=== PATIENT | female | born 1985 | race Caucasian/White ===

== ENCOUNTER → 2023-11-10 06:32 | Outpatient (REF) | payer BC, SELFPAY ==
[2023-11-10 08:00] LABS: % Basophils 0.5 % (0-2); % Immature Granulocytes 0.3 % (0-0.5); % Monocytes 7.7 % (1.7-9.3); % Neutrophils 47.5 % (42.2-75.2); Absolute Eosinophils 0.2 10^3/uL (0-0.7); Absolute Lymphocytes 1.5 10^3/uL (1.2-3.4); Absolute Monocytes 0.3 10^3/uL (0.1-0.6); Absolute Neutrophils 1.8 10^3/uL (1.4-6.5); Hematocrit 34.3 % (37.0-47.0); Hemoglobin 11.7 g/dL (12.0-16.0); Mean Corp Hgb Conc. 34.1 g/dL (33.0-37.0); Mean Corpuscular Hgb 30.3 pg (27.0-31.0); Mean Corpuscular Volume 88.9 fL (81.0-99.0); Mean Platelet Volume 10.3 fL (7.4-10.4); Nucleated Red Blood Cells % 0 %; Platelet Count 181 10^3/uL (130-400); Red Blood Cell Count 3.86 10^6/uL (4.20-5.40); Red Cell Dist. Width 12.6 % (11.5-14.5); White Blood Cell Count 3.8 10^3/uL (4.8-10.8)
[2023-11-10 08:31] LABS: Iron 122 ug/dl (37-170)
[2023-11-10 08:40] LABS: Percent Saturation 44 % (20-50); Total Iron Binding Capacity 277 ug/dl (265-497)
== END ==
LOC: REG 06:32
PROVIDERS: ATTENDING PHYSICIAN Family Medicine
DX: Z86.2 Personal history of diseases of the blood and blood-forming organs and certain disorders involving the immune mechanism (principal)
CPT/HCPCS: 36415; 82728; 83540; 83550; 85025

== ENCOUNTER → 2024-01-23 06:52 | Outpatient (REF) | payer BC, SELFPAY ==
[2024-01-23 07:53] LABS: ALT (SGPT) 28 U/L (0-35); AST (SGOT) 24 U/L (14-36); Albumin 4.7 g/dl (3.5-5.0); Alkaline Phosphatase 47 U/L (38-126); Blood Urea Nitrogen 12 mg/dl (7-17); Calcium 9.7 mg/dl (8.4-10.2); Carbon Dioxide 25 mmol/L (22-30); Chloride 103 mmol/L (98-107); Glucose 89 mg/dl (70-99); HDL Cholesterol 97 mg/dl; LDL Cholesterol, Calculated 73 mg/dl; Potassium 4.2 mmol/L (3.5-5.1); Sodium 140 mmol/L (135-145); Total Bilirubin 0.7 mg/dl (0.2-1.3); Total Cholesterol 180 mg/dl (50-199); Total Protein 7.2 g/dl (6.3-8.2); Triglyceride 50 mg/dl (10-149); Very Low Density Lipoprotein 10 mg/dl (0-30); eGFR > 60.00
[2024-01-23 08:15] LABS: TSH 1.42 uIU/ml (0.47-4.68)
== END ==
LOC: REG 06:52
PROVIDERS: ATTENDING PHYSICIAN Family Medicine
DX: Z00.00 Encounter for general adult medical examination without abnormal findings (principal)
CPT/HCPCS: 36415; 80053; 80061; 84443

== ENCOUNTER 2024-02-03 14:32 | Emergency (ER) | payer BC, SELFPAY ==
[2024-02-03 14:49] VITALS: BP 123/82
--- NOTE | 2024-02-03 17:18 | ED.GENMED ---
History of Present Illness
General
Chief Complaint: Eye Problems
Source: patient
Time Seen by Provider: 02/03/24 17:07
History of Present Illness
History of Present Illness:
Pleasant 38-year-old female that presents with visual disturbances in her right eye. Since 9 AM this morning patient noticed a 'half-pabon shaped area of cloudiness' in her right eye. She does report some pain and redness. Patient has a history of
blepharitis and had similar symptoms approximately 1 year ago. She was treated at her furnace repairer at that time. She called her furnace repairer today but they could not fit her in. Patient works in the hospital. She had to call out from work
today. Denies fever, chills, nausea or vomiting. She reports no vertigo or dizziness. Denies any symptoms in the left eye.
Review of Systems
Review of Systems
Allergies reviewed?: Yes
Phy Exam
General Physical Exam
General Presentation: well appearing and mild distress
General age: appears stated age
General Skin: warm and dry
General Habitus: normal
General Mental: alert
Cardiovascular Exam
Cardiovascular Exam: regular rate/rhythm
Pulmonary Exam
Pulmonary Exam: no respiratory distress and no cough
Gastrointestinal Exam
Gastrointestinal Exam: non tender
Neurological Exam
Neurological Exam: alert and oriented x3
Musculoskeletal Exam
Musculoskeletal Exam: full ROM
Skin Exam
Skin Exam: normal color and warm/dry
Psychiatric Exam
Psychiatric Exam: normal mood/affect
Course
Orders/Labs/Results
Orders:
Orders
02/03/24 16:45
Visual Acuity- Treatment ONCE
02/03/24 17:25
Visual Acuity- Treatment ONCE
02/03/24 17:29
Fluorescein Sodium [Ful-Dahlia] 1 mg .ROUTE .STK-MED ONE
Tetracaine HCl [Tetracaine 0.5% Ophthalmic Solution] 1 drop .ROUTE .STK-MED ONE
Vital Signs
Initial and Last Documented VS:
Initial Vital Signs
Temp Pulse Resp BP Pulse Ox
98.1 F 81 16 123/82 100
02/03/24 14:49 02/03/24 14:49 02/03/24 14:49 02/03/24 14:49 02/03/24 14:49
Last Documented Vital Signs
Temp Pulse Resp BP Pulse Ox
98.1 F 81 16 123/82 100
02/03/24 14:49 02/03/24 14:49 02/03/24 14:49 02/03/24 14:49 02/03/24 14:49
*Critical Care Note
Total Time (30-74mins, 75-104mins- exclusive of procedures): Not Applicable
Update Note
Update Note:
02/03/2024 1840 PM: We finally got in touch with [facility]. I spoke with Dr. Trejo . We discussed the patient. He was able to access the patient's chart. She has staph marginal keratitis. She has been seen in the office several
times for this. He wanted to see her tonight in his office in [facility]. Patient agreed to go there immediately. I was able to do a quick eye exam on her. Using fluorescein and tetracaine, I did not see any evidence of corneal ulcer or
abrasion. There was no stye or other signs of infection consistent with blepharitis. Patient was discharged with her who will drive her directly to the [facility] office.
ED Attending Note
-
Portions of this chart may have been created with voice recognition software.� Occasional wrong word or��sound alike� substitutions may have occurred due to the inherent limitations of voice recognition software.
Discharge Plan
Departure
Patient Disposition: Home (Routine Discharge)
Date of Disposition: 02/03/24
Time of Disposition: 18:55
Patient with high blood pressure during this ER visit?: Yes
Discharge Problem:
Acute right eye pain
Referrals:
Acquaviva,Jaida, DO [Family Provider] -
Activity Restrictions/Additional Instructions:
Please go directly to [facility]
[place], [place] Office
[address]
[place] [address]
Interventions
Interventions:
*Risk Screen - Suicide Last Done: 02/03/24 14:49
*General Assessment Last Done: 02/03/24 19:45
*Neglect/Abuse Screening Last Done: 02/03/24 14:49
ED- Fall Risk Assessment Last Done: 02/03/24 20:05
*ED COVID-19 Vaccine History Last Done: 02/03/24 14:49
*Nursing Disposition Last Done: 02/03/24 19:45
Discharge Date and Time
Discharge Date/Time: 02/03/24 19:45
Print Language: MALAY
== END 2024-02-03 19:45 | disposition home or self-care (01) ==
LOC: EMR 14:32
PROVIDERS: EMERGENCY PHYSICIAN Student in an Organized Health Care Education/Training Program; FAMILY PHYSICIAN Family Medicine
DX: H57.11 Ocular pain, right eye (principal)
CPT/HCPCS: 99283

== ENCOUNTER → 2024-02-14 06:40 | Outpatient (REF) | payer BC, SELFPAY ==
[2024-02-14 07:18] LABS: % Basophils 0.5 % (0-2); % Eosinophils 2.4 % (0-6); % Lymphocytes 27.5 % (20.5-51.1); % Monocytes 5.8 % (1.7-9.3); % Neutrophils 63.8 % (42.2-75.2); Absolute Eosinophils 0.1 10^3/uL (0-0.7); Absolute Monocytes 0.2 10^3/uL (0.1-0.6); Absolute Neutrophils 2.4 10^3/uL (1.4-6.5); Hematocrit 34.7 % (37.0-47.0); Hemoglobin 11.6 g/dL (12.0-16.0); Mean Corp Hgb Conc. 33.4 g/dL (33.0-37.0); Mean Corpuscular Hgb 30.4 pg (27.0-31.0); Mean Corpuscular Volume 91.1 fL (81.0-99.0); Mean Platelet Volume 10.2 fL (7.4-10.4); Nucleated Red Blood Cells % 0 %; Platelet Count 181 10^3/uL (130-400); Red Blood Cell Count 3.81 10^6/uL (4.20-5.40); Red Cell Dist. Width 12.5 % (11.5-14.5); Reticulocyte Count 1.4 % (0.4-2.8); White Blood Cell Count 3.8 10^3/uL (4.8-10.8)
[2024-02-14 08:02] LABS: C-Reactive Protein < 5.00 mg/L (0.0-10.00)
[2024-02-14 08:02] LABS: Erythrocyte Sed Rate 19 mm/hour (0-20)
[2024-02-14 08:05] LABS: ALT (SGPT) 20 U/L (0-35); AST (SGOT) 18 U/L (14-36); Albumin 4.4 g/dl (3.5-5.0); Alkaline Phosphatase 33 U/L (38-126); Blood Urea Nitrogen 12 mg/dl (7-17); Calcium 9.2 mg/dl (8.4-10.2); Carbon Dioxide 23 mmol/L (22-30); Chloride 106 mmol/L (98-107); Glucose 87 mg/dl (70-99); Iron 113 ug/dl (37-170); Potassium 4.3 mmol/L (3.5-5.1); Sodium 140 mmol/L (135-145); Total Bilirubin 0.5 mg/dl (0.2-1.3); eGFR > 60.00
[2024-02-14 08:14] LABS: Percent Saturation 42 % (20-50); Total Iron Binding Capacity 263 ug/dl (265-497)
[2024-02-14 09:10] LABS: Folate > 20.0 ng/ml (2.76-20); Vitamin B12 644 pg/ml (239-931)
[2024-02-15 16:14] LABS: Erythropoietin (EPO) 18 mU/mL (4-27)
[2024-02-15 23:37] LABS: ANA, IgG Reflex to HEp-2 None Detected (None Detected)
[2024-02-16 04:35] LABS: Haptoglobin 103 mg/dL (30-200)
== END ==
LOC: REG 06:40
PROVIDERS: ATTENDING PHYSICIAN Nurse Practitioner Adult Health; FAMILY PHYSICIAN Family Medicine
DX: D64.9 Anemia, unspecified (principal); R53.82 Chronic fatigue, unspecified
CPT/HCPCS: 36415; 80053; 82248; 82607; 82668; 82728; 82746; 83010; 83540; 83550; 84443; 85025; 85045; 85652; 86038; 86140

== ENCOUNTER → 2024-08-20 10:20 | Outpatient (REF) | payer BC, SELFPAY ==
[2024-08-20 11:33] LABS: % Basophils 0.3 % (0-2); % Eosinophils 0.4 % (0-6); % Immature Granulocytes 0.4 % (0-0.5); % Lymphocytes 11.5 % (20.5-51.1); % Monocytes 4.7 % (1.7-9.3); % Neutrophils 82.7 % (42.2-75.2); Absolute Lymphocytes 0.8 10^3/uL (1.2-3.4); Absolute Monocytes 0.3 10^3/uL (0.1-0.6); Hematocrit 37.2 % (37.0-47.0); Hemoglobin 12.4 g/dL (12.0-16.0); Mean Corp Hgb Conc. 33.3 g/dL (33.0-37.0); Mean Corpuscular Hgb 30.1 pg (27.0-31.0); Mean Corpuscular Volume 90.3 fL (81.0-99.0); Nucleated Red Blood Cells % 0 %; Platelet Count 218 10^3/uL (130-400); Red Blood Cell Count 4.12 10^6/uL (4.20-5.40); Red Cell Dist. Width 12.4 % (11.5-14.5); White Blood Cell Count 7.2 10^3/uL (4.8-10.8)
[2024-08-22 14:09] LABS: Albumin 4.22 g/dL (3.75-5.01); Alpha 2 Globulin 0.61 g/dL (0.48-1.05); Free Kappa Light Chains,Quant 13.55 mg/L (3.30-19.40); Free Lambda Light Chains,Quant 7.79 mg/L (5.71-26.30); IgA 117 mg/dL (68-408); IgG 1161 mg/dL (768-1632); IgM 154 mg/dL (35-263); Immunofixation Electrophoresis IFE Done; Kappa/Lambda Fr Light Ratio 1.74 (0.26-1.65); Total Protein-Electrophoresis 6.9 g/dL (6.3-8.2)
== END ==
LOC: REG 10:20
PROVIDERS: ATTENDING PHYSICIAN Internal Medicine Hematology & Oncology; FAMILY PHYSICIAN Family Medicine
DX: D64.9 Anemia, unspecified (principal); R53.82 Chronic fatigue, unspecified; D72.819 Decreased white blood cell count, unspecified
CPT/HCPCS: 36415; 82784; 83521; 84155; 84165; 85025; 86334

== ENCOUNTER → 2025-01-23 18:25 | Outpatient (REF) | payer BC, SELFPAY ==
[2025-01-23 18:52] LABS: Hematocrit 39.8 % (37.0-47.0); Hemoglobin 12.8 g/dL (12.0-16.0); Mean Corp Hgb Conc. 32.2 g/dL (33.0-37.0); Mean Corpuscular Volume 93.9 fL (81.0-99.0); Nucleated Red Blood Cells % 0 %; Platelet Count 193 10^3/uL (130-400); Red Cell Dist. Width 12.7 % (11.5-14.5)
[2025-01-23 18:58] LABS: ALT (SGPT) 14 U/L (0-35); AST (SGOT) 19 U/L (14-36); Albumin 4.9 g/dl (3.5-5.0); Alkaline Phosphatase 34 U/L (38-126); Blood Urea Nitrogen 13 mg/dl (7-17); Calcium 9.3 mg/dl (8.4-10.2); Carbon Dioxide 21 mmol/L (22-30); Chloride 107 mmol/L (98-107); Glucose 87 mg/dl (70-99); HDL Cholesterol 89 mg/dl; Iron 99 ug/dl (37-170); LDL Cholesterol, Calculated 88 mg/dl; Potassium 4.3 mmol/L (3.5-5.1); Sodium 137 mmol/L (135-145); Total Protein 7.7 g/dl (6.3-8.2); Very Low Density Lipoprotein 11 mg/dl (0-30); eGFR > 60.00
[2025-01-23 19:07] LABS: Total Iron Binding Capacity 318 ug/dl (265-497)
[2025-01-23 19:29] LABS: TSH 0.75 uIU/ml (0.47-4.68)
[2025-01-23 19:33] LABS: Ferritin 123.0 ng/ml (6.24-137)
== END ==
LOC: CLAB 18:25
PROVIDERS: ATTENDING PHYSICIAN Family Medicine
DX: F41.8 Other specified anxiety disorders (principal); Z86.2 Personal history of diseases of the blood and blood-forming organs and certain disorders involving the immune mechanism
CPT/HCPCS: 36415; 80053; 80061; 82728; 83540; 83550; 84443; 85025

== ENCOUNTER → 2025-04-02 08:24 | Outpatient (REF) | payer BC, SELFPAY ==
[2025-04-02 08:53] LABS: Hematocrit 39.8 % (37.0-47.0); Hemoglobin 12.8 g/dL (12.0-16.0); Mean Corp Hgb Conc. 32.2 g/dL (33.0-37.0); Mean Corpuscular Volume 93.4 fL (81.0-99.0); Nucleated Red Blood Cells % 0 %; Platelet Count 183 10^3/uL (130-400); Red Cell Dist. Width 12.6 % (11.5-14.5)
[2025-04-02 10:21] LABS: Iron 99 ug/dl (37-170); Total Iron Binding Capacity 308 ug/dl (265-497)
[2025-04-02 10:30] LABS: Ferritin 90.6 ng/ml (6.24-137)
[2025-04-02 11:01] LABS: Folate 12.4 ng/ml (2.76-20); Vitamin B12 619 pg/ml (239-931)
== END ==
LOC: REG 08:24
PROVIDERS: ATTENDING PHYSICIAN Internal Medicine Hematology & Oncology; FAMILY PHYSICIAN Family Medicine
DX: D64.9 Anemia, unspecified (principal); R53.82 Chronic fatigue, unspecified; D72.819 Decreased white blood cell count, unspecified; D72.818 Other decreased white blood cell count
CPT/HCPCS: 36415; 82607; 82728; 82746; 83540; 83550; 85025